=== PATIENT | female | born 1990 | race Caucasian/White ===

== ENCOUNTER 2016-12-12 17:39 | Emergency (ER) | payer SELFPAY ==
[~2016-12-12] VITALS: Ht 177.8 cm; Wt 99.7 kg
[2016-12-12] MEDS ORDERED: HYDROcodone/APAP 5/325 TABLET ONE (18:23)
[2016-12-12] MEDS ORDERED: KETOROLAC 30 MG/1 ML ONE (18:23)
[2016-12-12] MEDS ORDERED: HYDROcodone/APAP 5/325 TABLET PO ONE (18:30)
[2016-12-12] MEDS ORDERED: KETOROLAC 30 MG/1 ML IM ONE (18:30)
[2016-12-12 19:17] VITALS: BP 122/56
== END 2016-12-12 19:19 | disposition home or self-care (01) ==
LOC: ED 18:58
DX: R07.89 Other chest pain (principal)
CPT/HCPCS: 71010; 93005; 96372; 99284; J1885